=== PATIENT | male | born 1935 | race Caucasian/White ===

== ENCOUNTER 2022-10-13 12:55 | Outpatient (CLI) | payer MEDICARE, OTHER | END 2022-10-13 12:56 | disposition home or self-care (01) | LOC: CSHULT 12:55 | PROVIDERS: ATTEND Family Medicine | DX: R60.0 Localized edema (principal); R79.89 Other specified abnormal findings of blood chemistry ==

== ENCOUNTER 2023-10-19 16:16 | Outpatient (CLI) | payer MEDICARE | END 2023-10-19 16:17 | disposition home or self-care (01) | LOC: CSHRAD 16:16 | PROVIDERS: ATTEND Physician Assistant | DX: R05.3 Chronic cough (principal); R91.8 Other nonspecific abnormal finding of lung field | CPT/HCPCS: 71046 ==